=== PATIENT | female | born 1965 | race Caucasian/White ===

== ENCOUNTER 2019-11-02 07:25 | Outpatient (CLI) | payer OTHER, SELFPAY ==
--- NOTE | ~2019-11-02 | MM_ITS ---
EXAMINATION: MM screening [facility] BI w ankur HISTORY: Screening mammogram TECHNIQUE: Craniocaudal and mediolateral oblique 3-D tomosynthesis images were obtained and synthetic 2-D images were generated. CAD analysis was submitted and interpreted. COMPARISON: Serial mammograms dating back to 08/03/2015 BREAST PARENCHYMAL COMPOSITION: There are scattered areas of fibroglandular density. FINDINGS: Stable fibroglandular asymmetry. Scattered bilateral benign calcifications. There is no deana dence of suspicious mass, calcification, or architectural distortion to suggest malignancy in either breast. There has been no suspicious interval change. IMPRESSION: 1. No mammographic evidence of malignancy. 2. Recommend routine screening mammography in one year. BI-RADS Category 2: Benign finding(s). Reviewed, dictated and finalized at location A. WORKER
== END 2019-11-02 07:26 | disposition home or self-care (01) ==
PROVIDERS: PCP Family Medicine; Visit Provider Nurse Practitioner Family
DX: Z12.31 Encounter for screening mammogram for malignant neoplasm of breast (principal)
CPT/HCPCS: 77063; 77067

== ENCOUNTER → 2019-11-29 10:09 | Outpatient (CLI) | payer OTHER, SELFPAY ==
--- NOTE | ~2019-11-29 | US_ITS ---
EXAMINATION: US pelvic complete DATE: 11/29/2019 10:30 INDICATION: Polyp at cervical os TECHNIQUE: Multiple transabdominal and endovaginal sonographic images of the pelvis were obtained. COMPARISON: 06/04/2019 FINDINGS: The uterus measures 6.5 x 2.4 x 3.9 cm. The endometrial complex measures 6 mm. No sonograph ically detected cervical polyp is noted. The right ovary measures 2.9 x 2.9 x 3.4 cm and contains a 2 .9 cm cyst. The left ovary measures 2.7 x 2.1 x 2.3 cm. There is normal vascular flow in the ovaries . There is no free fluid in the pelvis. IMPRESSION: 1. Stable 2.9 cm cyst of the right ovary, likely benign. In a postmenopausal female, follow-up ultras ound in one year is recommended. Reviewed, dictated and finalized at location A. IMPRESSION: 1. Stable 2.9 cm cyst of the right ovary, likely benign. In a postmenopausal fe male, follow-up ultrasound in one year is recommended.
== END ==
PROVIDERS: PCP Family Medicine; Visit Provider Family Medicine
DX: N84.1 Polyp of cervix uteri (principal); N83.201 Unspecified ovarian cyst, right side
CPT/HCPCS: 76856

== ENCOUNTER 2020-02-10 12:30 | Outpatient (CLI) | payer OTHER, SELFPAY ==
--- NOTE | ~2020-02-10 | US_ITS ---
US breast LT limited 02/10/2020 13:03 Indication: Palpable left breast lump Procedure: High-resolution Limited left breast ultrasound Comparison: Mammogram dated 11/02/2019 Findings: Normal heterogeneous echotexture without focal solid or cystic mass. Impression: 1: Normal limited left breast ultrasound. No mass identified in the area of palpable concern. Recomme nd correlation with diagnostic left mammogram for complete evaluation of palpable abnormality. BI-RADS CATEGORY 0 - INCOMPLETE STUDY, NEED ADDITIONAL IMAGING EVALUATION. Reviewed, dictated and finalized at location A. Impression: 1: Normal limited left breast ultrasound. No mass identified in the area of pal pable concern. Recommend correlation with diagnostic left mammogram for complet e evaluation of palpable abnormality. BI-RADS CATEGORY 0 - INCOMPLETE STUDY, NEED ADDITIONAL IMAGING EVALUATION.
== END 2020-02-10 12:31 | disposition home or self-care (01) ==
PROVIDERS: PCP Family Medicine; Visit Provider Family Medicine
DX: N63.0 Unspecified lump in unspecified breast (principal); R92.8 Other abnormal and inconclusive findings on diagnostic imaging of breast
CPT/HCPCS: 76642

== ENCOUNTER 2020-05-12 02:53 | Outpatient (CLI) | payer OTHER, SELFPAY ==
[2020-05-13 13:48] LABS: SARS-CoV-2 RNA PCR Negative
== END 2020-05-12 02:54 | disposition home or self-care (01) ==
LOC: ANHCOVIDDT 02:54
PROVIDERS: PCP Family Medicine; Visit Provider Internal Medicine Gastroenterology
DX: Z01.812 Encounter for preprocedural laboratory examination (principal); Z11.59 Encounter for screening for other viral diseases
CPT/HCPCS: 87635; C9803; U0003

== ENCOUNTER 2020-05-15 00:41 | Day surgery (SDC) | payer OTHER, SELFPAY ==
[2020-05-08 12:14] VITALS: BMI 24.6
[2020-05-15 09:47] VITALS: BP 151/94; PULSE 105; RESP 20; TEMP 37.1; O2SAT 100; BMI 24.3
[2020-05-15] MEDS: LACTATED RINGERS 1,000 ML 150 ML IV CONT (10:08)
--- NOTE | 2020-05-15 10:30 | P.HP_ITS ---
History of Present Illness History of Present Illness Consent: Risks, benefits, and alternatives have been discussed and questions answered. Patient agrees to proceed with procedure. Chief complaint: anemia Narrative: Madhuri Gotti is a 54 year old W female referred for gastroscopy and colonoscopy for evaluation of mild normocytic normochromic anemia. Hemoglobin 10.5 hematocrit 31.9. MCV is normal at 86. Platelet count is slightly elevated 479. Patient has had some mild nausea she says a could relate anxiety. No vomiting no hematemesis. No prior history of peptic ulcer disease. Patient also has some mild abdominal bloating. Occasional intermittent diarrhea. No rectal bleeding. No family history of colon polyps or colon cancer. Patient did have a colonoscopy 6 years ago which was negative. I could not find any iron studies. [facility] Past Medical History Medical History Bunion [place] (generalized anxiety disorder) IBS (irritable bowel syndrome) Normal colonoscopy 2013 Social History Social History (Updated 04/28/20 @ 08:06 by Sonia Pickard) Social History: Smoking status: Never smoker Second hand tobacco smoke exposure: No Alcohol intake: current Drinks per week: 6 Substance use: never Substance use type: does not use Additional occupation/education comments: Homemaker Gender identity (if verbalized by the patient): Female Additional gender identity comments: Homemaker Meds Home Medications and Allergies Home Medications Medication Instructions Recorded Confirmed Type lifitegrast 5 % eye drops in a 1 drop EACH EYE Q12H 09/13/19 05/08/20 History dropperette epinephrine 0.3 mg/0.3 mL 0.3 mg IM ONCE #1 each 12/10/19 05/08/20 Rx injection, auto-injector cholecalciferol (vitamin D3) 1,250 1,250 mcg PO WEEKLY #14 cap 04/12/20 05/08/20 Rx mcg (50,000 unit) capsule alprazolam 0.5 mg tablet 0.5 mg PO BID #60 tablet 04/28/20 05/08/20 Rx escitalopram oxalate 10 mg tablet 10 mg PO DAILY #90 tablet 04/28/20 05/08/20 Rx acetaminophen [Tylenol] 325 mg PO PRN PRN 05/08/20 05/08/20 History Allergies Allergy/AdvReac Type Severity Reaction Status Date / Time fluoxetine Allergy Mild Jittery Verified 05/15/20 09:44 michael flavor Allergy Mild rash Verified 05/15/20 09:44 [place] Allergy Intermediate GENERALIZED Uncoded 05/15/20 09:44 RASH Vital Signs Vital Signs - 24 hr 05/15/20 09:47 Temperature 37.1 C Pulse Rate 105 H Respiratory Rate 20 Blood Pressure 151/94 H Pulse Oximetry 100 Exam Const: Orientation/consciousness: patient oriented x3 Resp: Auscultation: clear to auscultation bilaterally Cardio: Rate: regular rate Rhythm: regular rhythm Heart sounds: no murmurs GI: GI Palp: Yes Soft to palpation, No Tenderness to palpation present (GI), Yes No hepatosplenomegaly present and No Palpable mass present Auscultation: normal bowel sounds Neuro: General: patient oriented x3 and no focal motor deficits Extrem: General: no pedal edema Assessment and Plan Additional Plan Gastroscopy and colonoscopy for evaluation of mild anemia
--- NOTE | 2020-05-15 10:41 | WPDANESEPPF ---
Anes - Initial Pre Proc Eval Procedure: Operation Date: 05/15/20 10:30 Proposed Procedures p Esophagogastroduodenoscopy & Colonoscopy - Tim Quick MD Date/Time: 05/15/20 10:41 Surgeon: Tim Quick MD Pre Op Diagnosis: anemia Patient Data Age: 54 Gender: F Height: 5 ft 5 in Weight: 66.4 kg Last Vital Signs Temp 98.7 F 05/15/20 09:47 Pulse 105 H 05/15/20 09:47 Resp 20 05/15/20 09:47 BP 151/94 H 05/15/20 09:47 Pulse Ox 100 05/15/20 09:47 Allergies Allergy/AdvReac Type Severity Reaction Status Date / Time fluoxetine Allergy Mild Jittery Verified 05/15/20 09:44 [place] flavor Allergy Mild rash Verified 05/15/20 09:44 [place] Allergy Intermediate GENERALIZED Uncoded 05/15/20 09:44 RASH Home Medications Medication Instructions Recorded Confirmed Type lifitegrast 5 % eye drops in a 1 drop EACH EYE Q12H 09/13/19 05/08/20 History dropperette epinephrine 0.3 mg/0.3 mL 0.3 mg IM ONCE #1 each 12/10/19 05/08/20 Rx injection, auto-injector cholecalciferol (vitamin D3) 1,250 1,250 mcg PO WEEKLY #14 cap 04/12/20 05/08/20 Rx mcg (50,000 unit) capsule alprazolam 0.5 mg tablet 0.5 mg PO BID #60 tablet 04/28/20 05/08/20 Rx escitalopram oxalate 10 mg tablet 10 mg PO DAILY #90 tablet 04/28/20 05/08/20 Rx acetaminophen [Tylenol] 325 mg PO PRN PRN 05/08/20 05/08/20 History Patient hx anesthesia problems: none Family hx anesthesia problems: none PMFSH Past Medical History Medical History Bunion [place] (generalized anxiety disorder) IBS (irritable bowel syndrome) Normal colonoscopy 2013 Social History Social History (Updated 04/28/20 @ 08:06 by Sonia Pickard) Social History: Smoking status: Never smoker Second hand tobacco smoke exposure: No Alcohol intake: current Drinks per week: 6 Substance use: never Substance use type: does not use Additional occupation/education comments: Homemaker Gender identity (if verbalized by the patient): Female Additional gender identity comments: Homemaker Anes - Eval Final PreProcedure Day of Procedure 05/15/20 10:41 Patient weight: normal Heart: regular rate and rhythm Lungs: clear to auscultation Airway: Mallampati scale class II Neurological: alert and oriented Last oral intake: >/= 8 hours ASA classification: II Emergent: no Anesthetic plan: proceed Anesthesia type and monitoring: general GIVS and standard monitoring Informed Consent: The patient's anesthetic plan and its attendant risks and benefits were discussed with the patient/family/POA. Questions were solicited and answers provided to the satisfaction of the patient/family/POA.
[2020-05-15] MEDS: BENZOCAINE (*SP) 60 ML SPRAY CAN (HURRICAINE) 1 SPRAY MUCOUS MEM (11:25)
--- NOTE | 2020-05-15 11:39 | SUR.OPER ---
1137 EGD FINISHED, COLONOSCOPY STARTED AT 1147
[2020-05-15] MEDS: SIMETHICONE ORAL SUSPENSION 20 MG/0.3 ML 30 ML BOTTLE 0.6 ML IRRIGATION (11:59)
[2020-05-15 12:05] VITALS: BP 111/65; PULSE 76; RESP 24; O2SAT 99
[2020-05-15 12:15] VITALS: BP 120/73; PULSE 73; RESP 22; O2SAT 100
[2020-05-15 12:25] VITALS: BP 116/60; PULSE 73; RESP 14; O2SAT 100
== END 2020-05-15 13:00 | disposition home or self-care (01) ==
PROVIDERS: PCP Family Medicine; Visit Provider Internal Medicine Gastroenterology
PROC: 0DJ08ZZ Inspection of Upper Intestinal Tract, Via Natural or Artificial Opening Endoscopic (ICD-10-PCS; CPT 43235; principal; 2020-05-15 10:30)
DX: C78.89 Secondary malignant neoplasm of other digestive organs (principal); D64.9 Anemia, unspecified; K29.50 Unspecified chronic gastritis without bleeding; K21.0 Gastro-esophageal reflux disease with esophagitis; K64.4 Residual hemorrhoidal skin tags; K64.8 Other hemorrhoids; K58.9 Irritable bowel syndrome, unspecified; F41.1 Generalized anxiety disorder
CPT/HCPCS: 45378; 43239; 87081; 88305; 88313; 88342; J2704; J7120

== ENCOUNTER 2020-05-22 12:39 | Outpatient (CLI) | payer OTHER, SELFPAY ==
--- NOTE | ~2020-05-22 | CT_ITS ---
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 TECHNIQUE: Computed tomography (CT) of the chest, abdomen, and pelvis was performed with 100 mL Omnip aque-350 intravenous contrast. Automated exposure control and iterative reconstruction technique were employed. The dose-length product was 419.71 mGy-cm. COMPARISON: None FINDINGS: CHEST CT: Mild discoid atelectasis at the lingula. Mucous tree-in-bud opacity with mucous plugging in the media l segment of the right middle lobe consistent with endobronchial spread of disease most likely infect ious in etiology. No pulmonary edema, pleural effusion or pneumothorax. Heart size is normal. No corazon cardial effusion. Thoracic aorta is normal in caliber with no dissection. No pathologically enlarged thoracic lymphadenopathy. There is diffuse sclerosis throughout the bones with numerous lytic lesions throughout the axial and appendicular skeleton consistent with widespread osseous metastatic disease . ABDOMEN/PELVIS CT: Nonfocal wall thickening throughout the stomach which per report from prior endoscopy may be related to metastatic disease. Geographic region of decreased attenuation along the falciform ligament with t ypical location and appearance for hepatic steatosis. No other suspicious hepatic lesions to suggest hepatic metastatic disease. Decompressed gallbladder is normal. Spleen, pancreas, bilateral adrenal g lands and kidneys are normal. Bladder is normal. 3.0 cm right adnexal cyst. Left adnexa is unremarkab le. Heterogeneous attenuation/enhancement at the fundus of the uterus, the largest a 10 x 13 nodular region, potentially related to uterine fibroid although no correlate is seen on the prior pelvic ultr asound performed with transabdominal probe. There are a couple higher attenuation densities centrally within the fundus of the anteverted uterus which could represent dystrophic calcifications related t o reported prior endometrial ablation. No abnormal bowel wall thickening or obstruction. Appendix is normal. Small amount of ascites in the deep pelvis. IMPRESSION: 1. Widespread osseous metastatic disease. 2. Nonfocal wall thickening throughout the stomach which per report from prior endoscopy may be relat ed to metastatic disease. 3. Tree-in-bud opacity and bronchial mucous plugging in the medial segment of the right middle lobe w hich could be related to aspiration or pneumonia. 4. Heterogeneous attenuation/enhancement at the fundus of the stomach, potentially related to uterine fibroid. Consider repeat pelvic ultrasound with vaginal imaging. 5. 3.0 cm right adnexal cyst. Reviewed, dictated and finalized at location A. IMPRESSION: 1. Widespread osseous metastatic disease. 2. Nonfocal wall thickening throughout the stomach which per report from prior endoscopy may be related to metastatic disease. 3. Tree-in-bud opacity and bronchial mucous plugging in the medial segment of t he right middle lobe which could be related to aspiration or pneumonia. 4. Heterogeneous attenuation/enhancement at the fundus of the stomach, potentia lly related to uterine fibroid. Consider repeat pelvic ultrasound with vaginal imaging. 5. 3.0 cm right adnexal cyst.
--- NOTE | ~2020-05-22 | MR_ITS ---
EXAMINATION: MR breast BI wo/w con INDICATION: Malignant neoplasm metastatic to the stomach, concern for breast primary TECHNIQUE: Axial VIBRANT pre and dynamic post contrast, Sagittal VIBRANT post contrast, Axial T2 STIR ASSET COMPARISON: None CONTRAST: Multihance, 13 cc BREAST COMPOSITION: Scattered fibroglandular tissue FINDINGS: There are widespread metastases throughout the visualized thoracic osseous structures. RIGHT BREAST: There is minimal background parenchymal enhancement. No abnormal enhancement is present after contrast administration. There is a 1.2 x 1.0 cm lymph node of the right axilla. LEFT BREAST: There is minimal background parenchymal enhancement. No abnormal enhancement is present after contrast administration. No pathologically enlarged axillary or internal mammary lymph nodes ar e identified. IMPRESSION: 1. No MRI abnormality of the breasts to account for the patient's gastric carcinoma. 2. Widespread osseous metastatic disease. 3. Pathologically enlarged right axillary lymph node of unclear etiology. BI-RADS category 4, suspicious findings. Reviewed, dictated and finalized at location A. IMPRESSION: 1. No MRI abnormality of the breasts to account for the patient's gastric carci noma. 2. Widespread osseous metastatic disease. 3. Pathologically enlarged right axillary lymph node of unclear etiology. BI-RADS category 4, suspicious findings.
[2020-05-22 13:27] LABS: Estimated Glomerular Filt Rate > 60
== END 2020-05-22 12:40 | disposition home or self-care (01) ==
PROVIDERS: PCP Family Medicine; Visit Provider Family Medicine
DX: C78.89 Secondary malignant neoplasm of other digestive organs (principal); C80.1 Malignant (primary) neoplasm, unspecified; C79.51 Secondary malignant neoplasm of bone; R59.0 Localized enlarged lymph nodes; R91.8 Other nonspecific abnormal finding of lung field; N83.8 Other noninflammatory disorders of ovary, fallopian tube and broad ligament
CPT/HCPCS: 36415; 71260; 74177; 77049; A9577; C8908; Q9967

== ENCOUNTER 2020-06-06 19:48 | Emergency (ER) | payer OTHER, SELFPAY ==
--- NOTE | ~2020-06-06 | CT_ITS ---
EXAMINATION: CTA chest PE protocol DATE: 06/06/2020 23:15 INDICATION: Chest pain, shortness of breath. Productive cough for one month. Fever. Recent breast can cer diagnosis. TECHNIQUE: Computed tomography angiography (CTA) of the chest was performed with 100 mL Omnipaque-350 intravenous contrast timed to evaluate the pulmonary arteries. Coronal maximum intensity projection 3D-reconstructions were created by the technologist. Automated exposure control and iterative reconst ruction technique were employed. Exam dose: 182.96 mGy-cm total exam DLP. COMPARISON: 05/22/2020 CT chest abdomen pelvis 06/06/2020 portable AP chest FINDINGS: There is moderate opacification of the pulmonary arteries and no evidence of pulmonary embo lism. No thoracic aortic aneurysm or dissection. Normal heart size. No pericardial or pleural effusion. No hilar or mediastinal mass lesion or lymphadenopathy. No pulmonary infiltrate or consolidation. Mild discoid atelectasis or scarring in the lower lung zone s. No evidence of pulmonary metastatic disease. There is extensive severe osteolytic metastatic disease throughout the included spine, sternum, rib c age and shoulder girdles, both clavicles. 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 Reviewed, dictated and finalized at location A.
--- NOTE | ~2020-06-06 | XR_ITS ---
XR chest 1V portable DATE: 06/06/2020 20:42 INDICATION: Cough, shortness of breath, left chest wall pain. History of breast cancer. TECHNIQUE: Portable AP chest on 06/06/2020 at 2027 hours COMPARISON: 05/22/2020 CT chest abdomen pelvis FINDINGS: No pulmonary infiltrate or consolidation, pulmonary vascular congestion or pleural effusion or pneumothorax is detected. There is extensive metastatic disease of the skeleton. IMPRESSION: No active cardiopulmonary disease Extensive metastatic disease of the skeleton Reviewed, dictated and finalized at location A.
[2020-06-06 20:06] VITALS: BP 132/81; PULSE 102; RESP 18; TEMP 39.4; O2SAT 97
--- NOTE | 2020-06-06 20:27 | ED.GENADULT ---
HPI - General Adult General Chief complaint: Chest Pain Stated complaint: chest pain Time Seen by Provider: 06/06/20 19:52 History of Present Illness HPI narrative: Patient is a 54-year-old female who presents the ER with left chest wall pain. Associated with fever. Developed some discomfort over the last couple of days is worse with the lateral aspect of her chest wall inferiorly at the border of the ribs. Worse with movement and with coughing. Was discovered to have a fever this evening. Patient reports cough for the last month that has been unchanged. No known sick contacts. Patient was recently diagnosed with metastatic breast cancer and she is currently undergoing evaluation for this at [facility]. She has not yet received any chemotherapy or other treatments. Related Data Home Medications Medication Instructions Recorded Confirmed lifitegrast 5 % eye drops in a 1 drop EACH EYE Q12H 09/13/19 05/08/20 dropperette acetaminophen [Tylenol] 325 mg PO PRN PRN 05/08/20 05/08/20 Allergies Allergy/AdvReac Type Severity Reaction Status Date / Time fluoxetine Allergy Mild Jittery Verified 05/15/20 09:44 michael flavor Allergy Mild rash Verified 05/15/20 09:44 [place] Allergy Intermediate GENERALIZED Uncoded 05/15/20 09:44 RASH Review of Systems Review of Systems: All systems reviewed & are unremarkable except as noted in HPI and below Constitutional: Constitutional: Denies chills, Reports fever(s) and Reports weakness ENT: Denies nasal congestion and Denies sore throat Cardiovascular: Cardiovascular: Reports chest pain and Denies rapid heart rate Respiratory: Respiratory: Reports cough, Denies dyspnea and Denies wheezing Neurologic: Denies focal weakness and Denies numbness [facility] Past Medical History Medical History (Updated 06/06/20 @ 22:12 by Jose Elias Orosco MD) Bunion [place] (generalized anxiety disorder) IBS (irritable bowel syndrome) Normal colonoscopy 2013 Surgical History Surgical History (Updated 06/06/20 @ 20:29 by Jose Elias Orosco MD) History of esophagogastroduodenoscopy (EGD) Social History Social History (Updated 04/28/20 @ 08:06 by Sonia Pickard) Social History: Smoking status: Never smoker Second hand tobacco smoke exposure: No Alcohol intake: current Drinks per week: 6 Substance use: never Substance use type: does not use Additional occupation/education comments: Homemaker Gender identity (if verbalized by the patient): Female Additional gender identity comments: Homemaker Exam Narrative: Exam Narrative: GENERAL: Well-appearing, well-nourished, and in no acute distress. HEAD: Normocephalic, atraumatic. ENT: Mucous membranes moist. CHEST: Clear to auscultation. No respiratory distress. TTP left lateral lower chest wall. HEART: Regular rate and rhythm. Normal peripheral pulses. ABDOMEN: Soft, nontender, nondistended. EXTREMITIES: Normal range of motion. No edema. SKIN: Warm, dry, no rash. NEURO: Alert and oriented x3. Course Course Emergency Course: Unremarkable evaluation. Temperature coming down. Patient COVID swabbed at request of her cancer specialist. She will be discharged home with supportive therapy. Chest wall pain very reproducible and seems mechanical in nature. Vital Signs Vital signs: Vital Signs Temperature 103.0 F H 06/06/20 20:06 Pulse Rate 102 H 06/06/20 20:06 Respiratory Rate 18 06/06/20 20:06 Blood Pressure 132/81 06/06/20 20:06 Pulse Oximetry 97 06/06/20 20:06 Temperature 100.5 F H 06/06/20 21:01 Pulse Rate 87 06/06/20 23:21 Respiratory Rate 19 06/06/20 23:21 Blood Pressure 138/78 06/06/20 23:21 Pulse Oximetry 97 06/06/20 23:21 Medical Decision Making Vital Signs Vital Signs: Vital Signs Temperature 103.0 F H 06/06/20 20:06 Pulse Rate 102 H 06/06/20 20:06 Respiratory Rate 18 06/06/20 20:06 Blood Pressure 132/81 06/06/20 20:06 Pulse Ox
[2020-06-06] MEDS: MORPHINE SULFATE 2 MG/ML INJ IV PUSH (20:57)
[2020-06-06 21:01] VITALS: BP 129/71; PULSE 95; RESP 20; TEMP 38.1; O2SAT 96
[2020-06-06 21:02] VITALS: PULSE 94
[2020-06-06 21:11] LABS: Basophils Percent Auto 0.8 % (0.2-1.2); Eosinophils Percent Auto 0.8 % (0-4.4); Hematocrit 33.3 % (37.0-47.0); Hemoglobin 10.6 g/dL (12.0-15.0); Immature Granulocyte Absolute 0.03 K/mm3 (0.00-0.031); Immature Granulocyte Percent A 0.6 % (0-0.5); Lymphocytes Absolute Auto 0.76 K/mm3 (0.9-3.2); Lymphocytes Percent Auto 14.9 % (18.3-44.2); Mean Corpuscular HGB Conc 31.8 g/dl (32-36); Mean Corpuscular Hemoglobin 26.8 pg (26-34); Mean Corpuscular Volume 84.1 fl (80-100); Mean Platelet Volume 9.2 fl (7.4-10.4); Monocytes Absolute Auto 0.3 K/mm3 (0.1-0.6); Monocytes Percent Auto 5.9 % (2.6-8.5); Neutrophils Absolute Auto 3.9 K/mm3 (1.3-6.7); Nucleated Red Blood Cells Perc 0.4 % (0.0-0.2); Platelet Count Result 292 k/mm3 (150-375); Red Blood Count 3.96 M/mm3 (4.2-5.4); Red Cell Distribution Width 14.6 % (11.5-14.5); White Blood Count 5.1 K/mm3 (4.5-10.0)
[2020-06-06 21:21] LABS: INR 1.1; Prothrombin Time 14.3 Seconds (11.1-14.7)
[2020-06-06 21:22] LABS: Anion Gap 11 mmol/L (8-16); Blood Urea Nitrogen 9 mg/dL (7-17); Calcium 8.8 mg/dL (8.4-10.2); Carbon Dioxide 24 mmol/L (22-30); Chloride 101 mmol/L (98-107); Estimated Glomerular Filt Rate > 60; Glucose 111 mg/dL (65-105); Partial Thromboplastin Time 28.3 SECONDS (22.3-36.8); Potassium 3.8 mmol/L (3.4-5.0); Sodium 136 mmol/L (137-145)
[2020-06-06 21:34] LABS: Troponin I < 0.012 ng/mL (0.000-0.034)
[2020-06-06 23:00] VITALS: BP 122/84; PULSE 79; RESP 19; TEMP 36.8; O2SAT 100
--- NOTE | 2020-06-06 23:00 | PC.NURSE ---
assumed care of patient at this time. report taken from claus jerez.
[2020-06-06 23:21] VITALS: BP 138/78; PULSE 87; RESP 19; O2SAT 97
[2020-06-06] MEDS: MORPHINE SULFATE 4 MG/ML INJ IV PUSH (23:34)
[2020-06-07 13:13] LABS: SARS-CoV-2 RNA PCR Negative
== END 2020-06-06 23:00 | disposition home or self-care (01) ==
PROVIDERS: Emergency Provider Emergency Medicine; PCP Family Medicine
DX: B34.9 Viral infection, unspecified (principal); R07.89 Other chest pain; Z20.828 Contact with and (suspected) exposure to other viral communicable diseases; I45.10 Unspecified right bundle-branch block; C50.919 Malignant neoplasm of unspecified site of unspecified female breast; C79.51 Secondary malignant neoplasm of bone
CPT/HCPCS: 36415; 71045; 71275; 80048; 84484; 85025; 85610; 85730; 87635; 96374; 96376; 99284; C9803; J2270; Q9967; U0003